=== PATIENT | female | born 1960 | race Caucasian/White ===

== ENCOUNTER 2017-09-23 07:32 | Emergency (ER) | payer BC ==
[2017-09-23 07:54] VITALS: BP 97/57
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
== END 2017-09-23 08:20 | disposition home or self-care (01) ==
LOC: UCEAST 07:32
DX: R60.0 Localized edema (principal); M79.1 Myalgia; F32.9 Major depressive disorder, single episode, unspecified
CPT/HCPCS: 99211; G0463

== ENCOUNTER 2017-09-23 08:39 | Emergency (ER) | payer BC ==
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
--- NOTE | 2017-09-23 10:37 | RAD ---
Indication: LEFT lower leg "shaft" pain following potential injury approximate 10 days ago. Comparison: LEFT lower extremity venous ultrasound of the same date. Technique: AP and lateral views LEFT lower leg. REPORT AND IMPRESSION: Mild nonfocal soft tissue swelling. No subcutaneous emphysema or conspicuous foreign body. Negative for fracture, stigmata of stress reaction, or articular malalignment. Small Achilles tendon insertion and moderate plantar fascia origin bone spurs.
[2017-09-23 10:59] VITALS: BP 112/74
== END 2017-09-23 10:58 | disposition home or self-care (01) ==
LOC: ED 08:39
DX: S89.92XA Unspecified injury of left lower leg, initial encounter (principal); M79.605 Pain in left leg; X58.XXXA Exposure to other specified factors, initial encounter; Y92.9 Unspecified place or not applicable
CPT/HCPCS: 99282